=== PATIENT | female | born 1960 | race Caucasian/White ===

== ENCOUNTER → 2024-03-23 14:14 | Outpatient (REF) | payer BC, SELFPAY | LOC: RAD 14:14 | PROVIDERS: ATTENDING PHYSICIAN Internal Medicine Nephrology; FAMILY PHYSICIAN Family Medicine | DX: R22.1 Localized swelling, mass and lump, neck (principal); I10 Essential (primary) hypertension | CPT/HCPCS: 70491; 75571; Q9967 ==

== ENCOUNTER → 2024-03-31 11:04 | Outpatient (REF) | payer BC, SELFPAY | LOC: WDC 11:04 | PROVIDERS: ATTENDING PHYSICIAN Obstetrics & Gynecology Gynecology; FAMILY PHYSICIAN Family Medicine | DX: Z12.31 Encounter for screening mammogram for malignant neoplasm of breast (principal) | CPT/HCPCS: 77063; 77067 ==

== ENCOUNTER → 2024-04-14 07:39 | Outpatient (REF) | payer BC, SELFPAY | LOC: RCS 07:39 | PROVIDERS: ATTENDING PHYSICIAN Internal Medicine Nephrology; FAMILY PHYSICIAN Family Medicine | DX: I10 Essential (primary) hypertension (principal) | CPT/HCPCS: 93306 ==

== ENCOUNTER → 2024-05-24 06:55 | Outpatient (REF) | payer BC, SELFPAY | LOC: RAD 06:55 | PROVIDERS: ATTENDING PHYSICIAN Internal Medicine Nephrology; FAMILY PHYSICIAN Family Medicine | DX: I10 Essential (primary) hypertension (principal) | CPT/HCPCS: 93975 ==

== ENCOUNTER → 2025-01-25 07:22 | Outpatient (REF) | payer BC, SELFPAY ==
[2025-01-25 08:10] LABS: % Basophils 0.8 % (0-2); % Eosinophils 2.8 % (0-6); % Immature Granulocytes 0.6 % (0-0.5); % Monocytes 10.2 % (1.7-9.3); % Neutrophils 41.6 % (42.2-75.2); Absolute Eosinophils 0.2 10^3/uL (0-0.7); Absolute Lymphocytes 2.3 10^3/uL (1.2-3.4); Absolute Monocytes 0.5 10^3/uL (0.1-0.6); Absolute Neutrophils 2.2 10^3/uL (1.4-6.5); Hematocrit 42.7 % (37.0-47.0); Hemoglobin 13.7 g/dL (12.0-16.0); Mean Corp Hgb Conc. 32.1 g/dL (33.0-37.0); Mean Corpuscular Volume 87.1 fL (81.0-99.0); Mean Platelet Volume 10.6 fL (7.4-10.4); Nucleated Red Blood Cells % 0 %; Platelet Count 260 10^3/uL (130-400); Red Cell Dist. Width 13.8 % (11.5-14.5); White Blood Cell Count 5.3 10^3/uL (4.8-10.8)
[2025-01-25 08:58] LABS: ALT (SGPT) 39 U/L (0-35); AST (SGOT) 32 U/L (14-36); Albumin 4.5 g/dl (3.5-5.0); Alkaline Phosphatase 56 U/L (38-126); Blood Urea Nitrogen 22 mg/dl (7-17); Carbon Dioxide 28 mmol/L (22-30); Chloride 98 mmol/L (98-107); Creatine Phosphokinase 75 U/L (30-135); Glucose 109 mg/dl (70-99); HDL Cholesterol 60 mg/dl; LDL Cholesterol, Calculated 121 mg/dl; Magnesium 2.2 mg/dl (1.6-2.3); Potassium 4.3 mmol/L (3.5-5.1); Sodium 137 mmol/L (135-145); Total Bilirubin 0.4 mg/dl (0.2-1.3); Total Cholesterol 236 mg/dl (50-199); Total Protein 7.2 g/dl (6.3-8.2); Triglyceride 275 mg/dl (10-149); Very Low Density Lipoprotein 55 mg/dl (0-30); eGFR > 60.00
[2025-01-25 09:20] LABS: Glycohemoglobin (HgbA1c) 5.7 % (4.0-5.6)
[2025-01-25 11:44] LABS: TSH 4.24 uIU/ml (0.47-4.68)
[2025-01-25 12:03] LABS: Vitamin B12 975 pg/ml (239-931)
== END ==
LOC: RAD 07:22
PROVIDERS: ATTENDING PHYSICIAN Family Medicine
DX: M54.32 Sciatica, left side (principal); R20.0 Anesthesia of skin; Z00.00 Encounter for general adult medical examination without abnormal findings; R63.5 Abnormal weight gain; Z13.220 Encounter for screening for lipoid disorders; M79.10 Myalgia, unspecified site
CPT/HCPCS: 36415; 72110; 80053; 80061; 82550; 82607; 83036; 83735; 84443; 85025

== ENCOUNTER → 2025-04-04 08:27 | Outpatient (REF) | payer BC, SELFPAY | LOC: WDC 08:27 | PROVIDERS: ATTENDING PHYSICIAN Obstetrics & Gynecology Gynecology; FAMILY PHYSICIAN Family Medicine | DX: Z12.31 Encounter for screening mammogram for malignant neoplasm of breast (principal) | CPT/HCPCS: 77063; 77067 ==